=== PATIENT | female | born 1970 | race American Indian/Alaskan Native ===

== ENCOUNTER 2016-10-01 07:32 | Day surgery (SDC) | payer MEDICAID ==
--- NOTE | 2016-10-01 08:01 | Anesthesia Consultation ---
Anesthesia Consult and Med Hx Date of service: 10/01/16 - Airway Anesthetic Teeth Evaluation: Good ROM Head & Neck: Adequate Mental/Hyoid Distance: Adequate Mallampati Class: Class II Intubation Access Assessment: Probably Good - Pulmonary Exam CTA: Yes - Cardiac Exam Cardiac Exam: RRR - Pre-Operative Health Status ASA Pre-Surgery Classification: ASA1 Proposed Anesthetic Plan: General - Pulmonary Hx Smoking: No - Central Nervous System Hx Psychiatric Problems: No - Other Systems Hx Alcohol Use: Yes (occas) Hx Cancer: No
--- NOTE | 2016-10-01 08:01 | Anesthesia Day of Surgery ---
Anesthesia Day of Surgery - Day of Surgery Patient Examined: Yes Patient H&P Reviewed: Yes Patient is NPO: Yes
[2016-10-01] MEDS ORDERED: VERSED IV NR (08:30)
[2016-10-01] MEDS ORDERED: LACTATED RINGERS 1,000 ML IV SCH (08:30)
[2016-10-01] MEDS ORDERED: PEPCID IV NR (08:30)
--- NOTE | 2016-10-01 08:46 | Short Stay Summary ---
Short Stay Documentation Date of service: 10/01/16 Narrative H&P: Pt is a 45yo BF GP LMP presents for surgical evaluation of pelvic pain and a left ovarian cyst. CT Scan and pelvic u/s showed uterine fibroids and a left ovarian cyst which on initial u/s was supposed to be 23cm in size. Repeat pelvic u/s showed a 1 cm ovarian cyst, but pt still complained of persistent pelvic pain, thus she is now scheduled for a Laporoscopic left ovarian cystectomy. - History H&P: obtained from office Past Medical History: arrhythmia Past Surgical History: Social history: no significant social history, single - Allergies and Medications Current Medications: Allergies latex Allergy (Verified 10/01/16 08:21) Hives Home Medications Medication Instructions Recorded Confirmed Last Taken Type No Known Home Medications [No 09/29/16 09/29/16 Unknown History Reported Home Medications] Active Medications Cefazolin Sodium (Ancef/Sterile Water 2 Gm/20 Ml) 2 gm IV PREOP NR Famotidine (Pepcid) 20 mg IV PREOP NR Stop: 10/01/16 18:00 Last Admin: 10/01/16 08:39 Dose: 20 mg Lactated Ringer's (Lactated Ringers) 1,000 mls @ 75 mls/hr IV DIRECT MINNIE Last Admin: 10/01/16 08:39 Dose: 75 mls/hr Cefazolin Sodium (Ancef/Sterile Water 2 Gm/20 Ml) 2 gm in 20 mls @ 80 mls/hr IV PREOP NR PRN Reason: Protocol Midazolam HCl (Versed) 2 mg IV PREOP NR Stop: 10/01/16 18:00 Last Admin: 10/01/16 08:42 Dose: 2 mg - Physical exam General appearance: no acute distress Integumentary: no rash HEENT: Atraumatic Lungs: Clear to auscultation Breasts: deferred Heart: Regular rate Gastrointestinal: normal Female Genitourinary: deferred Rectal Exam: deferred Extremities: no ischemia, No edema Neurological: Normal gait, Normal speech - Brief post op/procedure progress note Date of procedure: 10/01/16 Pre-op diagnosis: 1. Pelvic pain 2. Left ovarian cyst 3. Uterine fibroids Post-op diagnosis: same Procedure: 1. Laproscopic left ovarian cystectomy 2. Left paratubal cystectomy 3. Lysis of pelvic adhesions Anesthesia: GETA Findings: An enlarged uterus with fibroids. Normal tubes bilaterally. Left paratubal cyst and left ovarian cysts. Normal right ovary. Normal appendix. Surgeon: BRIANNA ALVARADO Estimated blood loss: minimal Pathology: list (left ovarian cyst; left paratubal cyst) Specimen disposition: to lab Condition: stable - Hospital course Hospital course: Unremarkable. - Disposition Condition at discharge: Good Disposition: TO HOME OR SELFCARE - Discharge Diagnoses (1) Left ovarian cyst Status: Acute (2) Uterine fibroid Status: Chronic Qualifiers: Uterine leiomyoma location: intramural Qualified Code(s): D25.1 - Intramural leiomyoma of uterus (3) Pelvic adhesions Status: Acute Short Stay Discharge Plan Activity: no restrictions Diet: regular Wound: open to air, keep clean and dry Follow up with: ISHMAEL MISTRY MD [Primary Care Provider] - 7 Days BRIANNA ALVARADO MD [Staff Physician] - 14 Days Prescriptions: HYDROcodone/APAP 5-325 [[place] 5/325] 1 each PO Q6HR PRN #20 tablet PRN Reason: Pain
[2016-10-01 08:50] LABS: Basophils % (Auto) 0.9 % (0.0-1.8); Hematocrit 39.6 % (30.3-42.9); Hemoglobin 12.9 gm/dl (10.1-14.3); Mean Corpuscular HGB Conc 33 % (30-34); Mean Corpuscular Hemoglobin 28 pg (28-32); Mean Corpuscular Volume 87 fl (79-97); Platelet Count 226 K/mm3 (140-440); Red Blood Count 4.55 M/mm3 (3.65-5.03); Red Cell Distribution Width 14.1 % (13.2-15.2); White Blood Count 6.1 K/mm3 (4.5-11.0)
[2016-10-01] MEDS ORDERED: DILAUDID IV PRN (08:52)
[2016-10-01] MEDS ORDERED: ANCEF/STERILE WATER 2 GM/20 ML 2 GM/20 ML SYRINGE IV NR (09:00)
[2016-10-01] MEDS ORDERED: ZEMURON IV ONE (09:07)
[2016-10-01] MEDS ORDERED: SUBLIMAZE ONE (09:07)
[2016-10-01] MEDS ORDERED: XYLOCAINE MPF 2% ONE (09:07)
[2016-10-01] MEDS ORDERED: DIPRIVAN 10 MG/ML IV ONE (09:07)
[2016-10-01] MEDS ORDERED: ANCEF/STERILE WATER 2 GM/20 ML IV NR (09:15)
[2016-10-01] MEDS ORDERED: ZOFRAN IV PRN (09:15)
[2016-10-01] MEDS ORDERED: PERCOCET 5/325 PO PRN (09:15)
[2016-10-01] MEDS ORDERED: MARCAINE 0.5% 30 ML INFILTRATI ONE (09:20)
[2016-10-01] MEDS ORDERED: NACL 0.9% IR ONE (09:28)
[2016-10-01] MEDS ORDERED: MARCAINE 0.5% INFILTRATI ONE ×3 (09:28)
[2016-10-01] MEDS ORDERED: DECADRON ONE (09:58)
[2016-10-01] MEDS ORDERED: ZOFRAN ONE ×2 (09:58→13:21)
[2016-10-01] MEDS ORDERED: DILAUDID ONE ×2 (10:11→12:21)
[2016-10-01] MEDS ORDERED: TISSEEL VHSD FROZEN 4 ML SYR TP ONE (10:20)
[2016-10-01] MEDS ORDERED: ROBINUL ONE (10:31)
[2016-10-01] MEDS ORDERED: NEOSTIGMINE ONE (10:31)
--- NOTE | 2016-10-01 11:49 | Post Anesthesia Evaluation ---
- Post Anesthesia Evaluation Patient Participated: Yes Airway Patent: Yes Stable Respiratory Function: Yes Temp > 96.8F: Yes Pain Manageable: Yes Adequeate Hydration: Yes Anesthesia Complications: No Block Receding Appropriately: Not Applicable
[2016-10-01] MEDS ORDERED: APRESOLINE IV ONE (12:00)
--- NOTE | 2016-10-01 13:25 | Operative Report ---
Operative Report Operative Report: Proposed Procedures: 1. Laparoscopic left ovarian cystectomy Actual Procedures: 1. 1. Laparoscopic left ovarian cystectomy 2. Left paratubal cystectomy 3. Lysis of pelvic adhesions Postoperative Diagnosis: 1. 1. Left ovarian cyst 2. Left paratubal cyst 3. Uterine fibroids Surgeons: 1. Dr. Evans Yoon Anesthesia: Gen. endotracheal intubation by Dr. Pena Estimated Blood Loss: Minimal Drains and Tubes: None Findings, Complications, and Other Information: After the patient was identified she was prepped and draped in usual shawl fashion and placed in the lithotomy position. Next the bladder was catheterized using a Billingsley catheter, and the speculum was placed in the vaginal vault. The anterior lip of the cervix was grasped using single-tooth tenaculum, and the uterine manipulator was then placed. The tenaculum and speculum were removed. Attention was then turned to the abdomen where first a periumbilical incision was made using a skin knife, and the Optiview trocar was inserted under direct visualization. After an adequate amount of abdominal insufflation, visualization of the pelvic organs found the uterus to be enlarged with fibroids, the tubes were normal bilaterally, the left ovary had ovarian cysts, though small left paratubal cyst and the right ovary was normal. The appendix also was normal. Next the suprapubic incision and a left lateral incision was made through which 5 mm trochars were placed in order to aid in manipulation of the pelvic organs. The left paratubal cyst was excised and sent to pathology. The left ovarian cyst was also excised and sent to pathology and pelvic adhesions from the omentum to the left lateral sidewall was taken down using both sharp and blunt dissection. Copious amounts of irrigation was then performed, and the Tisseel sealant was sprayed over the left cystectomy site. The procedure was then considered complete. All instruments removed from the abdomen. The abdomen was deflated, and the periumbilical incision was closed using a Von Haddad device on the fascia and 4 Monocryl suture in a subcuticular fashion on the skin. The suprapubic and left lateral incisions were closed in similar fashion. Each incision was infiltrated using 0.5% Marcaine solution. The Billingsley catheter was removed. The uterine manipulator also removed. The patient tolerated the procedure well and was transferred to recovery room in stable condition.
[2016-10-01 14:12] VITALS: BP 130/65
== END 2016-10-01 14:07 | disposition home or self-care (01) ==
LOC: OR 07:32
PROVIDERS: ATTEND Obstetrics & Gynecology
DX: N83.202 Unspecified ovarian cyst, left side (principal); N83.8 Other noninflammatory disorders of ovary, fallopian tube and broad ligament; D25.9 Leiomyoma of uterus, unspecified; K66.0 Peritoneal adhesions (postprocedural) (postinfection); Z98.890 Other specified postprocedural states; Z91.040 Latex allergy status
CPT/HCPCS: 36415; 58661; 58662; 81025; 85025; 85027; 88304; 88305; C9250; J0360; J0690; J1100; J1170; J2250; J2405; J2704; J2710; J3010; J7120

== ENCOUNTER 2018-06-06 07:58 | Outpatient (CLI) | payer OTHER, MEDICAID ==
--- NOTE | 2018-06-06 08:43 | Mammography Report ---
BILATERAL DIGITAL SCREENING MAMMOGRAM with CAD: 06/06/18 07:58:00 CLINICAL: Routine screening. COMPARISON:12/03/15 and 11/06/14 FINDINGS: The breasts are heterogeneously dense, which may obscure small masses. No mass, architectural distortion or suspicious calcifications. IMPRESSION: No mammographic evidence of malignancy. BI-RADS CATEGORY: 1 - - Negative RECOMMENDATION: Routine mammographic screening in one year. COMMENT: Patient follow-up letters are generated by our [employer] application.
== END 2018-06-06 07:59 | disposition home or self-care (01) ==
LOC: MAMMO 07:58
PROVIDERS: ATTEND Family Medicine
DX: Z12.31 Encounter for screening mammogram for malignant neoplasm of breast (principal)
CPT/HCPCS: 77067

== ENCOUNTER 2020-03-13 07:22 | Outpatient (CLI) | payer MEDICAID ==
--- NOTE | 2020-03-13 08:25 | Mammography Report ---
DIGITAL SCREENING MAMMOGRAM WITH CAD, 03/13/2020 CLINICAL INFORMATION / INDICATION: Routine screening mammography. ROUTINE TECHNIQUE: Digital bilateral 2D mammography was obtained in the craniocaudal and mediolateral obliqu e projections. This examination was interpreted with the benefit of Computer-Aided Detection analysis . COMPARISON: 06/06/2018 and 12/03/2015. FINDINGS: Breast Density: The breasts are heterogeneously dense, which may obscure small masses. No dominant mass, suspicious calcifications, or architectural distortion in either breast. IMPRESSION: No mammographic evidence of malignancy. Follow up recommendation: Routine yearly BI-RADS Category 1: Negative. A "normal" or negative report should not discourage follow up or biopsy of a clinically significant f inding. A written summary of these findings will be mailed to the patient. The patient will be entered into a mammography reporting system which will generate a reminder letter for the patient's next appointmen t at the appropriate interval. The [employer] recommends yearly mammograms starting at age 40 and continuing as l fabiana as a woman is in good health. Breast MRI is recommended for women with an approximate 20-25% or greater lifetime risk of breast cancer, including women with a strong family history of breast or ova bonnie cancer or who have been treated for Hodgkin's disease. Signer Name: Jono Irizarry MD Signed: 03/13/2020 8:20 AM Workstation Name: [id number]
== END 2020-03-13 07:23 | disposition home or self-care (01) ==
LOC: MAMMO 07:22
PROVIDERS: ATTEND Family Medicine
DX: Z12.31 Encounter for screening mammogram for malignant neoplasm of breast (principal)
CPT/HCPCS: 77067